=== PATIENT | male | born 1955 | race Caucasian/White ===

== ENCOUNTER → 2017-02-14 | Outpatient (CLI) | payer BC, OTHER ==
[~2017-02-14] MED LIST: OMEG10007 PO
--- NOTE | 2017-02-14 09:55 | DIAGNOSTIC IMAGING REPORT ---
LEFT HIP 2 VIEWS CLINICAL HISTORY: Fall with left hip pain. FINDINGS: AP and frog-leg views of left hip are compared to study dated 09/17/2010. The skeletal structures are well mineralized for age. No fracture is seen in the left hip or the visualized left hemipelvis. Mild arthritic change is seen in the hip. Small enthesophytes arise from the greater trochanter of the left femur. The overlying soft tissues are within normal limits. There are numerous pelvic phleboliths. IMPRESSION: There is no radiographic evidence of left hip fracture. Electronically signed by: Manuel Desouza M.D. 02/14/2017 9:54 AM Dictated Date/Time: 02/14/2017 9:51 AM
== END | disposition home or self-care (01) ==
LOC: C.RAD 09:35
PROVIDERS: ATTEND Family Medicine
DX: M25.552 Pain in left hip (principal); W19.XXXA Unspecified fall, initial encounter

== ENCOUNTER 2018-05-24 22:30 | Inpatient (IN) ==
[2018-05-24 23:03] LABS: Hematocrit (blood only) 45.5 % (42-52); Mean Corpuscular Hgb Conc 35.2 g/dL (32-36); Mean Platelet Volume 10.4 fL (7.4-10.4); Platelet Count 304 K/uL (130-400); RDW Coefficient of Variation 12.8 % (11.5-14.5); RDW Standard Deviation 43.2 fL (36.4-46.3); Red Blood Count 4.89 M/uL (4.7-6.1); White Blood Count 10.45 K/uL (4.8-10.8)
[2018-05-24 23:26] LABS: ALC (manual) 5.55 K/uL (1.2-3.4); Eosinophils # (manual) 0.37 K/uL (0-0.5); Large Granular Lymph % (manual) 27.4 %; Lymphocytes # (manual) 2.69 K/uL (1.2-3.4); Lymphocytes % (manual) 25.7 %; Monocytes # (manual) 0.92 K/uL (0.11-0.59); Monocytes % (manual) 8.8 %; Neutrophils % (manual) 34.6 %; RBC Morphology Unremarkable
[2018-05-24 23:29] LABS: BUN Creatinine Ratio 23.4 (10-20); Calcium 9.4 mg/dl (8.5-10.1); Creatinine Clr Calc Pharmacy 110.4 ml/min; Est GFR (African American) 106.2; Est GFR (Non-African American) 91.6; Magnesium 2.3 mg/dl (1.8-2.4)
[2018-05-24 23:35] LABS: Bilirubin,Total 0.3 mg/dl (0.2-1)
[2018-05-24 23:43] LABS: iSTAT Hemoglobin 16.7 g/dl (14.0-18.0); iSTAT Ionized Calcium 1.19 mmol/l (1.12-1.32)
[2018-05-25 01:09] LABS: Partial Thromboplastin Ratio 1.1
[2018-05-25 03:25] LABS: Basophils # (auto) 0.02 K/uL (0-0.2); Basophils % (auto) 0.2 %; Eosinophils # (auto) 0.25 K/uL (0-0.5); Eosinophils % (auto) 2.8 %; Hematocrit (blood only) 46.2 % (42-52); Immature Granulocytes # (auto) 0.05 K/uL (0.00-0.02); Immature Granulocytes % (auto) 0.6 %; Lymphocytes # (auto) 4.03 K/uL (1.2-3.4); Lymphocytes % (auto) 44.6 %; Mean Corpuscular Hgb Conc 34.6 g/dL (32-36); Mean Corpuscular Volume 92.8 fL (80-100); Mean Platelet Volume 10.3 fL (7.4-10.4); Monocytes # (auto) 0.62 K/uL (0.11-0.59); Monocytes % (auto) 6.9 %; Neutrophils # (auto) 4.06 K/uL (1.4-6.5); Neutrophils % (auto) 44.9 %; Platelet Count 303 K/uL (130-400); RDW Coefficient of Variation 12.9 % (11.5-14.5); RDW Standard Deviation 43.2 fL (36.4-46.3); Red Blood Count 4.98 M/uL (4.7-6.1); White Blood Count 9.03 K/uL (4.8-10.8)
[2018-05-25 03:38] LABS: INR 1.1 (0.9-1.1); Prothrombin Time 10.6 Seconds (9.0-12.0)
[2018-05-25 03:42] LABS: Alanine Aminotransferase 60 U/L (12-78); Albumin Level 3.9 gm/dl (3.4-5.0); Aspartate Aminotransferase 29 U/L (15-37); BUN Creatinine Ratio 24.2 (10-20); Blood Urea Nitrogen 17 mg/dl (7-18); Calcium 8.8 mg/dl (8.5-10.1); Carbon Dioxide 24 mmol/L (21-32); Chloride 106 mmol/L (98-107); Creatinine Clr Calc Pharmacy 134.8 ml/min; Est GFR (African American) 115.6; Est GFR (Non-African American) 99.7; Glucose 110 mg/dl (70-99); Potassium 3.9 mmol/L (3.5-5.1); Sodium 136 mmol/L (136-145)
[2018-05-25 03:47] LABS: Albumin Globulin Ratio 1.1 (0.9-2); Alkaline Phosphatase 56 U/L (45-117); Bilirubin,Total 0.4 mg/dl (0.2-1); Globulin 3.6 gm/dl (2.5-4.0); Total Protein 7.5 gm/dl (6.4-8.2); Troponin I < 0.015 ng/ml (0-0.045)
[2018-05-25 07:07] LABS: Partial Thromboplastin Time 51.3 Seconds (21.0-31.0)
== END 2018-05-25 13:29 | disposition home or self-care (01) ==
LOC: ED 22:30 → SUATTDRO 05-25 00:50 → 2E 05-25 00:50